=== PATIENT | female | born 1985 | race Caucasian/White ===

== ENCOUNTER 2020-05-20 10:23 | Outpatient (REF) | payer MEDICAID, SELFPAY | END 2020-05-20 10:24 | disposition home or self-care (01) | LOC: HO.LAB 10:23 | PROVIDERS: Visit Provider Internal Medicine | DX: Z20.828 Contact with and (suspected) exposure to other viral communicable diseases (principal) | CPT/HCPCS: 87635 ==

== ENCOUNTER 2021-05-09 12:41 | Outpatient (REF) | payer MEDICAID, OTHER, SELFPAY ==
[2021-05-09 14:02] LABS: COVID-19 Test Negative (Negative)
== END 2021-05-09 12:42 | disposition home or self-care (01) ==
LOC: HO.LAB 12:41
PROVIDERS: Visit Provider Internal Medicine
DX: Z20.822 Contact with and (suspected) exposure to COVID-19 (principal)
CPT/HCPCS: 36415; 87635; C9803